=== PATIENT | male | born 1990 | race Caucasian/White ===

== ENCOUNTER 2020-12-25 12:00 | Outpatient (REF) | payer SELFPAY ==
--- NOTE | ~2020-12-25 | XR_ITS ---
EXAMINATION: XR FOOT, LEFT CLINICAL INFORMATION: Pain left ovary COMPARISON: None TECHNIQUE: AP, lateral, and oblique views of the left foot. FINDINGS: The bones and soft tissues are normal. No visible acute fracture, dislocation subluxation. The ankle mortise and subtalar joints are normal. XR/XR foot LT min 3V IMPRESSION: Unremarkable left foot exam.
[2020-12-25 14:35] LABS: Uric Acid 4.7 mg/dL (3.4-7.0)
== END 2020-12-25 12:01 | disposition home or self-care (01) ==
LOC: HO.HMGCX 12:00
PROVIDERS: Visit Provider Nurse Practitioner Family
DX: M79.675 Pain in left toe(s) (principal)
CPT/HCPCS: 36415; 73630; 84550

== ENCOUNTER 2023-06-25 13:09 | Emergency (ER) | payer OTHER, SELFPAY ==
--- NOTE | ~2023-06-25 | XR_ITS ---
EXAMINATION: XR KNEE, LEFT CLINICAL INFORMATION: Knee pain status post injury COMPARISON: None available. TECHNIQUE: Four views of the left knee. FINDINGS: A vacuum phenomenon in medial compartment. No fracture. A joint effusion is most likely present. Alignment is anatomic. Joint spaces are maintained. No abnormal soft tissue calcification. XR/XR knee LT 4V IMPRESSION: No evidence of an acute osseous injury. A joint effusion is most likely present.
[2023-06-25 13:50] VITALS: BP 136/89; PULSE 67; RESP 20; TEMP 36.8; O2SAT 98; BMI 34.4
--- NOTE | 2023-06-25 13:50 | ED_ITS ---
HPI - Extremity Injury (Lower) General Chief Complaint: Extremity Injury, Lower Stated Complaint: L leg work injury Time Seen by Provider: 06/25/23 15:28 Source: patient Mode of arrival: ambulatory Limitations: no limitations History of Present Illness HPI Narrative: Patient is a 33 year old assigned male at with no reported medical history presenting to the emergency department today with left knee pain. Patient states that he slipped and hit his left knee a week ago and it is still bothering him. Patient denies any head strike, loss of consciousness, dizziness, lightheadedness, abdominal pain, nausea, vomiting, fever, chills, blurry vision, double vision, loss of vision, chest pain, difficulty breathing, shortness of breath, back pain, night sweats, pain with urination, increased urinary frequency, increased urinary urgency, blood in his urine or stool, syncope or a near syncopal episode, bowel incontinence, bladder incontinence, bowel retention, bladder retention, or any other complaints at this time. MD complaint: knee injury Onset (ago): week(s) Severity: mild Severity scale (1-10): 3 Related Data Previous Rx's Medication Instructions Recorded cephalexin 500 mg tablet 500 mg PO TID 7 days #21 tabs 12/25/20 prednisone 20 mg tablet 20 mg PO DAILY 7 days #7 tabs 06/25/23 Allergies Allergy/AdvReac Type Severity Reaction Status Date / Time No Known Allergies Allergy Unverified 12/25/20 11:38 Review of Systems Constitutional: Constitutional: Reports no additional constitutional complaints, Denies chills, Denies fever(s) and Denies night sweats Eyes: Eyes: Reports no additional eye complaints, Denies blurry vision, Denies change in vision, Denies diplopia, Denies eye discharge, Denies loss of vision and Denies eye pain ENT: Denies dizziness Cardiovascular: Cardiovascular: Reports no additional cardiovascular complaints, Denies chest pain, Denies lightheadedness, Denies Loss of Consciousness and Denies dyspnea Respiratory: Respiratory: Reports no additional respiratory complaints and Denies dyspnea Gastrointestinal: Gastrointestinal: Reports no additional gastrointestinal complaints, Denies abdominal pain, Denies melena, Denies hematochezia, Denies change in bowel habits and Denies change in stool character Genitourinary: Genitourinary: Reports no additional male genitourinary complaints, Denies hematuria, Denies oliguria, Denies difficulty urinating, Denies dysuria, Denies urinary frequency, Denies urinary hesitancy, Denies urinary incontinence and Denies urinary urgency Musculoskeletal: Musculoskeletal: Reports no additional musculoskeletal complaints, Denies numbness and Denies tingling Comments: left knee pain Neurologic: Denies dizziness, Denies loss of vision, Denies numbness and Denies tingling Psychiatric: Psychiatric: Reports no additional psychiatric complaints Endocrine: Endocrine: Reports no additional endocrine complaints Hematologic/Lymphatic: Hematologic/Lymphatic: Reports no additional hematologic/lymphatic complaints Allergic/Immunologic: Allergic/Immunologic: Reports no additional allerg ic/immunologic complaints [facility] Past Medical History Attestation statement: The following information was validated with the patient. Source: old records reviewed and nursing notes reviewed Social History Social History Advance Directives: No Advance Directives Information Provided: No Physical Exam Vital Signs: Vital Signs: Last Vital Signs Temp 98.3 F 06/25/23 13:50 Pulse 67 06/25/23 13:50 Resp 20 06/25/23 13:50 BP 136/89 06/25/23 13:50 Pulse Ox 98 06/25/23 13:50 O2 Del Method Room Air 06/25/23 13:50 BMI result Body Mass Index 34.4 Const: General: cooperative, no acute distress, alert and awake Nutritional Appearance: well nourished Orientation/consciousness: patient oriented x3 Limitations: no limitations HEENT: Head: Yes normal to inspection and Yes atraumatic Ears: hearing grossly normal bilaterally and external ears normal General nose exam: Normal external nose present, no nasal discharge noted and no epistaxis Face and sinus: Yes normal facial exam, No abrasion and No laceration Mouth: Normal oral and palatal mucosa present, no drooling and no muffled voice Eyes: General: appearance normal, both eyes and all related structures Periorbital: periorbital findings normal Eyelids: Yes eyelids normal Conjunctivae: conjunctivae normal Pupils: Equal, round and reactive pupils present EOM: EOMs intact bilaterally Neck: Neck: Yes normal visual inspection, Yes full ROM and Yes no lymphadenopathy Chest: Chest palpation & inspection: normal inspection of the chest Resp: Effort & Inspection: normal respiratory effort and able to speak in complete sentences GI: Inspection: Yes normal to inspection Neuro: General: patient oriented x3 and moves all extremities Cranial nerves: Yes Equal, round and reactive pupils present Cognition (Neuro): normal cognition Motor exam (neuro): 5/5 motor strength present throughout Sensory Exam: Normal double simultaneous stimulation for sensation Coordination: [id number] test normal Extrem: General: Yes normal to inspection, Yes full ROM and Yes capillary refill normal Psych: Appearance: grossly normal Mental Status: mental status grossly normal Affect: normal affect Attitude: cooperative Thought process: Normal thought process present Thought content: Normal thought content present Insight: Good insight present (Psych) Course Course Course Narrative: RME - 33 yo male presents to the ER for evaluation of 03/17 left knee pain after he injured it at work 1 week ago. He states he slipped, fell and banged it on a manual alek. Has had increasing pain and intermittnet numbness/tingling in the proximal lower leg and knee. Plan: XR knee Medications Administered Discontinued Medications Generic Name Dose Route Start Last Admin Trade Name Freq PRN Reason Stop Dose Admin Prednisone 20 mg 06/25/23 15:30 06/25/23 15:37 Prednisone 20 Mg Tablet PO 06/25/23 15:31 20 mg ONCE ONE Administration Medical Decision Making Medical Decision Making [facility] Narrative: Patient is a 33 year old assigned male at with no reported medical history presenting to the emergency department today with left knee pain. Patient's physical exam was unremarkable. Patient's left knee x-ray showed no acute process. I explained my physical exam findings as well as all test results to the patient. I answered all questions asked by the patient. I stressed the importance of the patient taking his medication as prescribed. I stressed the importance of the patient following up with his primary care provider. I stressed the importance of the patient returning to the emergency department immediately if his symptoms were to worsen or if he were to develop any dizziness, shortness of breath, difficulty breathing, chest pain, blurry vision, loss of vision, nausea, vomiting, abdominal pain, fever, chills, back pain, or any other complaints. Patient verbalized agreement and understanding with this treatment plan and discharge. Differential Diagnosis Differential Diagnoses: The differential diagnosis associated with the presentation includes Left knee pain Left knee strain Left knee sprain Independent Interpretation I performed an independent interpretation of an: Plain X-Ray Interpretation: My interpretation is in agreement with the radiologist's impression of this imaging study. EXAMINATION: XR KNEE, LEFT CLINICAL INFORMATION: Knee pain status post injury COMPARISON: None available. TECHNIQUE: Four views of the left knee. FINDINGS: A vacuum phenomenon in medial compartment. No fracture. A joint effusion is most likely present. Alignment is anatomic. Joint spaces are maintained. No abnormal soft tissue calcification. XR/XR knee LT 4V IMPRESSION: No evidence of an acute osseous injury. A joint effusion is most likely present. Dictated By: Angel Gomes MD Signed By: Electronically signed by Angel Gomes MD 06/25/23 3695 Radiology Impression Discussion of test interpretation with radiology: I have reviewed the radiologist's reading. Discharge Plan Discharge Clinical Impression: Knee pain Patient Disposition: Home, Self-Care Instructions: Knee Pain (ED) Additional Instructions: Follow up with your primary care provider and if pain persists >1 week from today, an orthopedic provider. Return to the emergency department immediately if your symptoms worsen or if you develop any dizziness, shortness of breath, difficulty breathing, chest pain, blurry vision, loss of vision, nausea, vomiting, abdominal pain, fever, chills, back pain, or any other complaints. Prescriptions: New prednisone 20 mg tablet 20 mg PO DAILY 7 Days Qty: 7 0RF No Action cephalexin 500 mg tablet 500 mg PO TID 7 Days Qty: 21 0RF [place] [facility] [place]] (Call to establish and follow up with a primary care provider. If you already have a primary care provider, please follow up with them.) [facility] [place] [facility] [place] Group] (Call to establish and follow up with a primary care provider. If you already have a primary care provider, please follow up with them.) [facility] [place] [facility] [Provider Group] (Call to establish and follow up with a primary care provider. If you already have a primary care provider, please follow up with them.) [facility] [place] [facility] [Provider Group] (If pain persists >1 week from today, call to establish and follow up with an orthopedic provider. ) Stand Alone Forms: Work/School Release Interventions: ED Discharge Assessment Last Done: 06/25/23 15:42 Discharge Date/Time: 06/25/23 15:42 Print Language: Burundian
[2023-06-25] MEDS: predniSONE 20 MG TABLET PO (15:37)
== END 2023-06-25 15:42 | disposition home or self-care (01) ==
LOC: HO.ED 15:37
PROVIDERS: Emergency Provider Emergency Medicine Emergency Medical Services
DX: S89.92XA Unspecified injury of left lower leg, initial encounter (principal); M25.562 Pain in left knee; X58.XXXA Exposure to other specified factors, initial encounter; Y93.9 Activity, unspecified; Y92.9 Unspecified place or not applicable; Y99.0 Civilian activity done for income or pay
CPT/HCPCS: 73564; 99282; 99283

== ENCOUNTER 2023-07-21 17:13 | Emergency (ER) | payer OTHER, SELFPAY ==
--- NOTE | 2023-07-21 17:53 | ED.GENADULT ---
HPI - General Adult General Chief complaint: Upper Respiratory Symptoms Stated complaint: sore throat , dizzy Time Seen by Provider: 07/21/23 18:55 Source: patient Mode of arrival: ambulatory Limitations: no limitations History of Present Illness HPI narrative: Patient is a 33 year old assigned male at with no reported medical history presenting to the emergency department today with a headache, sore throat, and chills. Patient states that over the last 2 days he has had a headache, sore throat, and chills. Patient denies any dizziness, lightheadedness, abdominal pain, nausea, vomiting, fever, blurry vision, double vision, loss of vision, chest pain, difficulty breathing, shortness of breath, back pain, night sweats, pain with urination, increased urinary frequency, increased urinary urgency, blood in his urine or stool, syncope or a near syncopal episode, recent trauma or falls, bowel incontinence, bladder incontinence, bowel retention, bladder retention, or any other complaints at this time. Onset (ago): day(s) (2) Severity: mild Severity scale (1-10): 2 Relieving factors: none Exacerbating factors: none Associated symptoms: fever/chills and headaches Treatments prior to arrival: none Related Data Previous Rx's Medication Instructions Recorded cephalexin 500 mg tablet 500 mg PO TID 7 days #21 tabs 12/25/20 prednisone 20 mg tablet 20 mg PO DAILY 7 days #7 tabs 06/25/23 Allergies Allergy/AdvReac Type Severity Reaction Status Date / Time No Known Allergies Allergy Unverified 12/25/20 11:38 Review of Systems Constitutional: Constitutional: Reports no additional constitutional complaints, Reports chills, Denies fever(s), Reports headache(s) and Denies night sweats Eyes: Eyes: Reports no additional eye complaints, Denies blurry vision, Denies change in vision, Denies diplopia, Denies eye discharge, Denies loss of vision and Denies eye pain ENT: Denies dizziness, Reports headache(s) and Reports sore throat Cardiovascular: Cardiovascular: Reports no additional cardiovascular complaints, Denies chest pain, Denies lightheadedness, Denies Loss of Consciousness and Denies dyspnea Respiratory: Respiratory: Reports no additional respiratory complaints and Denies dyspnea Gastrointestinal: Gastrointestinal: Reports no additional gastrointestinal complaints, Denies abdominal pain, Denies melena, Denies hematochezia, Denies change in bowel habits and Denies change in stool character Genitourinary: Genitourinary: Reports no additional male genitourinary complaints, Denies hematuria, Denies oliguria, Denies difficulty urinating, Denies dysuria, Denies urinary frequency, Denies urinary hesitancy, Denies urinary incontinence and Denies urinary urgency Musculoskeletal: Musculoskeletal: Reports no additional musculoskeletal complaints, Denies numbness and Denies tingling Neurologic: Denies dizziness, Reports headache(s), Denies loss of vision, Denies numbness and Denies tingling Psychiatric: Psychiatric: Reports no additional psychiatric complaints Endocrine: Endocrine: Reports no additional endocrine complaints Hematologic/Lymphatic: Hematologic/Lymphatic: Reports no additional hematologic/lymphatic complaints Allergic/Immunologic: Allergic/Immunologic: Reports no additional allergic/immunologic complaints PMFSH Past Medical History Attestation statement: The following information was validated with the patient. Source: old records reviewed and nursing notes reviewed Medical History Cellulitis of foot Toe pain, left Social History Social History Advance Directives: No Advance Directives Information Provided: No Physical Exam ED Vital Signs: Vital Signs - 24 hr 07/21/23 17:54 07/21/23 19:05 Temperature 98.2 F 98.2 F Pulse Rate 71 73 Respiratory Rate 18 15 Blood Pressure 148/104 H 143/98 H Pulse Oximetry 98 97 Oxygen Delivery Method Room Air Room Air BMI result Body Mass Index 31.0 Const General: cooperative, no acute distress, alert and awake Nutritional Appearance: well nourished Orientation/consciousness: patient oriented x3 Limitations: no limitations [facility] Head: Yes normal to inspection and Yes atraumatic Ears: hearing grossly normal bilaterally and external ears normal General nose exam: Normal external nose present, no nasal discharge noted and no epistaxis Face and sinus: Yes normal facial exam, No abrasion and No laceration Mouth: Normal oral and palatal mucosa present, no drooling and no muffled voice Throat: Yes posterior oropharynx normal and Yes tonsils normal Eyes General: appearance normal, both eyes and all related structures Periorbital: periorbital findings normal Eyelids: Yes eyelids normal Conjunctivae: conjunctivae normal Pupils: Equal, round and reactive pupils present EOM: EOMs intact bilaterally Neck Neck: Yes normal visual inspection, Yes full ROM and Yes no lymphadenopathy Chest Chest palpation & inspection: normal inspection of the chest Resp Effort & Inspection: normal respiratory effort and able to speak in complete sentences GI Inspection: Yes normal to inspection Neuro General: patient oriented x3 and moves all extremities Cranial nerves: Yes Equal, round and reactive pupils present Cognition (Neuro): normal cognition Motor exam (neuro): 5/5 motor strength present throughout Sensory Exam: Normal double simultaneous stimulation for sensation Coordination: [id number] test normal Extrem General: Yes normal to inspection, Yes full ROM and Yes capillary refill normal Psych Appearance: grossly normal Mental Status: mental status grossly normal Affect: normal affect Attitude: cooperative Thought process: Normal thought process present Thought content: Normal thought content present Insight: Good insight present (Psych) Course Course Course Narrative: RME performed by Tomasa Rome PA-C. Patient is a 33 year old assigned male at presenting to the emergency department with a sore throat and headache. Swabs ordered. Patient placed back in the waiting room pending room availability and results. Medications Administered Discontinued Medications Generic Name Dose Route Start Last Admin Trade Name Freq PRN Reason Stop Dose Admin Dexamethasone Sodium Phosphate 10 mg 07/21/23 18:59 07/21/23 19:11 Dexamethasone Sod Phosphate 10 Mg/Ml Vial PO 07/21/23 19:00 10 mg ONCE ONE Administration Medical Decision Making Medical Decision Making [facility] Narrative: Patient is a 33 year old assigned male at with no reported medical history presenting to the emergency department today with a sore throat, chills, and headache. Patient's physical exam was unremarkable. Patient's COVID, influenza, RSV, and strep tests were all negative. I explained my physical exam findings as well as all test results to the patient. I answered all questions asked by the patient. I stressed the importance of the patient taking his medication as prescribed. I stressed the importance of the patient following up with his primary care provider. I stressed the importance of the patient returning to the emergency department immediately if his symptoms were to worsen or if he were to develop any dizziness, shortness of breath, difficulty breathing, chest pain, blurry vision, loss of vision, nausea, vomiting, abdominal pain, fever, chills, back pain, or any other complaints. Patient verbalized agreement and understanding with this treatment plan and discharge. Differential Diagnosis Differential Diagnoses: The differential diagnosis associated with the presentation includes Pharyngitis Viral illness COVID-19 Influenza RSV Strep pharyngitis Lab Data MDM Lab Attestation statement: I reviewed the patient's lab results. My interpretation of these studies and their corresponding values is that they are grossly normal. Labs: Lab Results 07/21/23 07/21/23 Range/Units 17:57 18:00 Influenza Type A (PCR) NEGATIVE (Negative) Influenza Type B (PCR) NEGATIVE (Negative) RSV RNA Qual (PCR) NEGATIVE (Negative) SARS-CoV-2 RNA (RT-PCR) NEGATIVE (Negative) S. pyogenes GrpA GERTRUDIS Negative (Negative) Discharge Plan Discharge Clinical Impression: Pharyngitis Patient Disposition: Home, Self-Care Instructions: Pharyngitis (ED) Additional Instructions: Follow up with your primary care provider. Return to the emergency department immediately if your symptoms worsen or if you develop any dizziness, shortness of breath, difficulty breathing, chest pain, blurry vision, loss of vision, nausea, vomiting, abdominal pain, fever, chills, back pain, or any other complaints. Prescriptions: No Action prednisone 20 mg tablet 20 mg PO DAILY 7 Days Qty: 7 0RF cephalexin 500 mg tablet 500 mg PO TID 7 Days Qty: 21 0RF Referrals: [facility] [place] Family Medicine [Provider Group] (Call to establish and follow up with a primary care provider. If you already have a primary care provider, please follow up with them.) [facility] [place] [facility] [Provider Group] (Call to establish and follow up with a primary care provider. If you already have a primary care provider, please follow up with them.) [facility] [place] [facility] [Provider Group] (Call to establish and follow up with a primary care provider. If you already have a primary care provider, please follow up with them.) Stand Alone Forms: Work/School Release Interventions: ED Discharge Assessment Last Done: 07/21/23 19:14 Discharge Date/Time: 07/21/23 19:15 Print Language: Belarusian
[2023-07-21 17:54] VITALS: BP 148/104; PULSE 71; RESP 18; TEMP 36.8; O2SAT 98; BMI 31.0
[2023-07-21 18:17] LABS: IDNOW Serial# 08D9AD1C; Strep A Nucleic Acid Negative (Negative)
[2023-07-21 18:47] LABS: Influenza A PCR NEGATIVE (Negative); Influenza B PCR NEGATIVE (Negative); Resp Syncy Virus RNA Qual PCR NEGATIVE (Negative); SARS COV2 PCR INHOUSE NEGATIVE (Negative)
[2023-07-21 19:05] VITALS: BP 143/98; PULSE 73; RESP 15; TEMP 36.8; O2SAT 97
[2023-07-21] MEDS: dexAMETHasone sod phosphate 10 MG/ML VIAL PO (19:11)
--- NOTE | 2023-07-21 19:14 | PC.NURSE ---
pt medicated per NOV and was discharged
== END 2023-07-21 19:15 | disposition home or self-care (01) ==
PROVIDERS: Physician Assistant Medical; Emergency Provider Emergency Medicine Emergency Medical Services
DX: J02.9 Acute pharyngitis, unspecified (principal); R51.9 Headache, unspecified; Z20.822 Contact with and (suspected) exposure to COVID-19; Z20.828 Contact with and (suspected) exposure to other viral communicable diseases
CPT/HCPCS: 0241U; 87651; 99283; J1100

== ENCOUNTER 2024-12-27 14:50 | Emergency (ER) | payer OTHER, SELFPAY ==
[2024-12-27 15:05] VITALS: BP 142/94; PULSE 74; RESP 18; TEMP 36.7; O2SAT 97; BMI 35.5
--- NOTE | 2024-12-27 15:05 | ED.GENADULT ---
HPI - General Adult General Chief complaint: Wound/Laceration Stated complaint: cut on private area Time Seen by Provider: 12/27/24 18:00 Source: patient Mode of arrival: ambulatory Limitations: no limitations History of Present Illness ED Provider: jazmin sun np HPI narrative: Patient is a 34-year-old male who presents emergency department for evaluation concern for infection to the right aspect of the penile shaft. He reports 2 weeks ago he was shaving his genital region, and soon after he noticed a small bump to the side of the penis. He states that he tried to open the area by squeezing it but there was no drainage or pus that was released. He continues to have the bump present. It is not painful. He denies redness. Denies history of similar in the past. Denies dysuria, hematuria, penile discharge. Asked whether he has concern for sexually transmitted infections he states ?it could be possible?. Related Data Previous Rx's ?Medication ?Instructions ?Recorded cephalexin 500 mg tablet 500 mg PO TID 7 days #21 tabs 12/25/20 prednisone 20 mg tablet 20 mg PO DAILY 7 days #7 tabs 06/25/23 Allergies Allergy/AdvReac Type Severity Reaction Status Date / Time No Known Allergies Allergy Verified 12/27/24 15:07 Review of Systems Review of Systems: Yes all other systems are reviewed and are negative PMFSH Past Medical History Attestation statement: The following information was validated with the patient. Source: old records reviewed Medical History Cellulitis of foot Toe pain, left Social History Social History Advance Directives: No Advance Directives Information Provided: No Physical Exam ED Vital Signs: Vital Signs - 24 hr 12/27/24 15:05 Temperature 98.1 F Pulse Rate 74 Respiratory Rate 18 Blood Pressure 142/94 H Pulse Oximetry 97 Oxygen Delivery Method Room Air BMI result Body Mass Index 35.5 Appearance: Alert.?Oriented to person, place and time. No acute distress.?Normal affect.? CVS: Heart sounds normal. Normal heart rate and rhythm.? Pulses normal.?? Respiratory: No respiratory distress.? Lung sounds clear to auscultation bilaterally?? Skin: Skin warm and dry.? Normal skin color. Urogenital: Performed with chairman and ceo ED personnel and payroll technician along the right proximal penile shaft there is a 0.25 cm pale ulcerated lesion without apparent active drainage or surrounding erythema. Painless Neuro: Moves all extremities spontaneously. Sensation intact bilaterally. Ambulates with normal steady gait. Course Course Course Narrative: This is a rapid medical exam performed by Kade Worrell NP: Additional HPI, ROS, PE not included below will be deferred to primary provider. Patient is a 34-year-old male presenting to the emergency department with complaint of infected hair follicle in genital area. States he started picking at it and symptoms worsened. Not visualized in triage due to privacy concerns. Medical Decision Making Medical Decision Making MDM Narrative: Patient is a 34-year-old male who presents emergency department for evaluation of a painless bump noted to the penile shaft over the past 2 weeks. On my evaluation, there is a very small painless lesion that is ulcerated no active drainage. Reviewed with patient concern for syphilis and presenting chunk Gy, given lack of pain and erythema lower suspicion for HSV however did attempt to obtain a an HSV culture from the lesion to send to the lab. He is amenable to syphilis serum screening. Additionally have sent testing for chlamydia and gonorrhea. He declines prophylactic treatment at this time. There does not appear infected, not consistent with abscess/cellulitis. He was advised to refrain from sexual intercourse over the next week, advised he would be contacted with any positive testing results but instructed to call Friday to affirm testing results before engaging in his anticipated intercourse this weekend, she does not feel as though he can abstain during the weekend Differential Diagnosis Differential Diagnoses: The differential diagnosis associated with the presentation includes External Record Review External record reviewed: Outpatient record Prescription Management I considered prescription management with: Other (See narrative above) Discharge Plan Discharge Clinical Impression: Penile lesion Patient Disposition: Home, Self-Care Additional Instructions: You were evaluated in the emergency department for a painless lesion to the side of your penis. Testing for sexually transmitted infections has been sent including herpes, syphilis, chlamydia, gonorrhea. As discussed, it is important that you refrain from sexual intercourse until the results of this testing has been obtained. This should result within a few days. You may call come Friday if you do not hear from us to affirm testing results. The area itself does not appear to be a skin infection or abscess that would require antibiotics at this time. Follow-up with your primary care doctor. As discussed, [facility] is a local health office that you may visit at your leisure for sexually transmitted infection testing [address], [place] [address] Prescriptions: No Action prednisone 20 mg tablet 20 mg PO DAILY 7 Days Qty: 7 0RF cephalexin 500 mg tablet 500 mg PO TID 7 Days Qty: 21 0RF Referrals: Physician,None [Primary Care Provider] - Print Language: Arabic
[2024-12-27 19:03] VITALS: BP 139/96; PULSE 74; RESP 16; TEMP 36.8; O2SAT 100
[2024-12-27 19:09] VITALS: BP 139/96; PULSE 74; RESP 16; TEMP 36.8; O2SAT 100
[2024-12-28 08:33] LABS: Syphilis Screen Nonreactive (Nonreactive)
[2024-12-28 09:02] LABS: CT PCR NOT DETECTED (Not Detect.); NG PCR NOT DETECTED (Not Detect.)
== END 2024-12-27 19:09 | disposition home or self-care (01) ==
PROVIDERS: Nurse Practitioner Family; Emergency Provider Emergency Medicine Emergency Medical Services
DX: N48.29 Other inflammatory disorders of penis (principal); Z20.2 Contact with and (suspected) exposure to infections with a predominantly sexual mode of transmission; Z79.899 Other long term (current) drug therapy
CPT/HCPCS: 36415; 86780; 87255; 87491; 87591; 99283

== ENCOUNTER 2025-01-23 14:29 | Emergency (ER) | payer OTHER, SELFPAY ==
[2025-01-23 14:36] VITALS: BP 147/107; PULSE 82; RESP 16; TEMP 36.9; O2SAT 98; BMI 34.8
--- NOTE | 2025-01-23 14:36 | ED.GENADULT ---
HPI - General Adult General Chief complaint: Urogenital-Male Stated complaint: std check Time Seen by Provider: 01/23/25 14:57 Source: patient, RN notes reviewed and old records reviewed Mode of arrival: ambulatory Limitations: no limitations History of Present Illness ED Provider: Anaid ROGERS narrative: Patient is a 34-year-old male presenting to the emergency department with complaint of non painful lesion to his penis for over a month. Seen in this ED for same complaint on 12/27/2024, states he does not know the results of his STI testing from that visit and denies any new symptoms from that time, this is same area of concern. Reports the area has been improving from how it looked at his last visit but still looks abnormal and he would like it assessed. Denies any penile discharge or drainage, swelling, dysuria. Denies any fevers. Patient reports he does shave to the affected area. MD complaint: penile lesion Onset (ago): month(s) Location: genitals Related Data Previous Rx's ?Medication ?Instructions ?Recorded cephalexin 500 mg tablet 500 mg PO TID 7 days #21 tabs 12/25/20 prednisone 20 mg tablet 20 mg PO DAILY 7 days #7 tabs 06/25/23 Allergies Allergy/AdvReac Type Severity Reaction Status Date / Time No Known Allergies Allergy Verified 01/23/25 14:37 Review of Systems Review of Systems: As per HPI Yes all other systems are reviewed and are negative PMFSH Past Medical History Medical History Cellulitis of foot Toe pain, left Social History Social History Advance Directives: No Advance Directives Information Provided: No Physical Exam ED Vital Signs: Vital Signs - 24 hr 01/23/25 14:36 01/23/25 15:51 Temperature 98.4 F 98.4 F Pulse Rate 82 82 Respiratory Rate 16 16 Blood Pressure 147/107 H 147/107 H Pulse Oximetry 98 98 Oxygen Delivery Method Room Air Room Air BMI result Body Mass Index 34.8 Vital signs have been reviewed and appear to be correct. Blood pressure elevated. Heart rate normal. Respiratory rate normal. Temperature normal. Oxygen saturation normal. Const General: no acute distress, alert and awake Orientation/consciousness: patient oriented x3 HENMT Head: Yes normocephalic and Yes atraumatic Mouth: oropharynx normal and moist mucous membranes Throat: Yes uvula midline Eyes Pupils: Equal, round and reactive pupils present EOM: EOMs intact bilaterally Neck Neck: Yes normal visual inspection, Yes full ROM, Yes no lymphadenopathy, Yes no meningeal signs and Yes supple Resp Effort & Inspection: normal respiratory effort Auscultation: clear to auscultation bilaterally Cardio Rate: regular rate Rhythm: regular rhythm Heart sounds: S1 normal heart sound present and S2 normal heart sound present Peripheral pulses: Peripheral pulses 2+ throughout GI Inspection: Yes normal to inspection and No distended Palpation (GI): Soft to palpation, nontender, no guarding, hepatosplenomegaly present and No Rebound tenderness present Auscultation: normoactive bowel sounds Other: Chaperoned by: EVARISTO Herrera General: Yes no CVA tenderness Penis: normal penis and other (2mm circular lesion to right lateral shaft, flat pink discoloration) Back/Spine/Pelvis Back: no CVA tenderness Skin General skin exam: elasticity normal and turgor normal Rashes: no rashes Neuro General: patient oriented x3, gait normal and no meningeal signs Cranial nerves: Yes Equal, round and reactive pupils present Motor exam (neuro): 5/5 motor strength present throughout and Normal motor muscle tone present throughout Sensory Exam: Normal double simultaneous stimulation for sensation Course Course Course Narrative: 01/23/25 1436 DAISHA Avendaño This is a Rapid Medical Examination (RME) performed by Leanne George PA-C in triage. Full HPI, ROS, assessment and treatment plan per primary provider in the Main ED. Hx: 34 yo M here for eval of penile lesions. recently seen for penile lesion 1 mo ago w/ negative SIT testing at that time. he was not prescribed any antibiotics. states penile lesion is getting worse w/ discomfort and erythema. reports attempting to pluck an ingrown hair in the same region, is unsure if he has irritated the area. also endorses NAVARRO since yesterday. hx of HAs managed w/ OTC medications. did not take anything today. PE/vitals: well appearing, area not examined in triage d/t privacy Plan: further eval in back Medical Decision Making Medical Decision Making MDM Narrative: Patient is a 34-year-old male presenting to the emergency department with complaint of non painful lesion to his penis for over a month. On exam patient is awake, A+Ox3, VS WNL, afebrile, normal neurological exam without focal deficits, physical exam findings as above. Given reported symptoms and physical exam findings, initial differential includes but is not limited to STI, folliculitis, scar. Physical exam not consistent with lesion, appears more like healing scar tissue possibly from a shaving injury. Discussed with patient that the results of his STI testing from prior visit were all negative. Advised patient that if he develops any new symptoms he can [facility]. Return precautions discussed. Patient verbalized understanding of and agreement with plan. Differential Diagnosis Differential Diagnoses: The differential diagnosis associated with the presentation includes Admission/Observation Consideration of admission/observation: Escalation of care including admission/observation considered Patient would have been admitted to the hospital had their work up had any findings where hospital admission was appropriate and their clinical presentation warranted hospital admission. Lab Data MDM Lab Attestation statement: I reviewed the patient's lab results. labs from 12/27/24 reviewed External Record Review External record reviewed: Inpatient record, Office record and Outpatient record Discharge Plan Discharge Clinical Impression: Concern about STI in male without diagnosis Patient Disposition: Home, Self-Care Additional Instructions: You were evaluated in the emergency department today for concern of a sexually transmitted disease. Your exam was reassuring and your prior testing was all negative. If you have any new symptoms or changes in symptoms, follow up with either [facility] or [facility]. You can apply a small amount of A&D ointment to the affected area to help healing. [facility] [place] [phone] [place] [phone] Prescriptions: No Action prednisone 20 mg tablet 20 mg PO DAILY 7 Days Qty: 7 0RF cephalexin 500 mg tablet 500 mg PO TID 7 Days Qty: 21 0RF Interventions: ED Discharge Assessment Last Done: 01/23/25 15:51 Print Language: Japanese
[2025-01-23 15:51] VITALS: BP 147/107; PULSE 82; RESP 16; TEMP 36.9; O2SAT 98
== END 2025-01-23 15:55 | disposition home or self-care (01) ==
PROVIDERS: Emergency Provider Emergency Medicine
DX: N48.89 Other specified disorders of penis (principal); Z20.2 Contact with and (suspected) exposure to infections with a predominantly sexual mode of transmission
CPT/HCPCS: 99282